=== PATIENT | male | born 1955 | race Asian ===

== ENCOUNTER → 2019-08-21 | Outpatient (CLI) | payer OTHER, MEDICARE | LOC: SJCVC 12:33 | PROVIDERS: ATTEND Internal Medicine | DX: R94.31 Abnormal electrocardiogram [ECG] [EKG] (principal); I10 Essential (primary) hypertension; E78.5 Hyperlipidemia, unspecified; E11.9 Type 2 diabetes mellitus without complications; K21.9 Gastro-esophageal reflux disease without esophagitis; Z87.891 Personal history of nicotine dependence ==

== ENCOUNTER → 2019-10-23 | Outpatient (CLI) | payer OTHER, MEDICARE | LOC: SJCVCIMAG 09-11 09:42 | PROVIDERS: ATTEND Internal Medicine | DX: R00.0 Tachycardia, unspecified (principal); E11.9 Type 2 diabetes mellitus without complications; I10 Essential (primary) hypertension; Z79.82 Long term (current) use of aspirin; Z79.899 Other long term (current) drug therapy; Z88.0 Allergy status to penicillin ==